=== PATIENT | female | born 1955 | race Caucasian/White ===

== ENCOUNTER 2016-11-27 14:54 | Emergency (ER) | payer MEDICAID, OTHER ==
[~2016-11-27] VITALS: Ht 165.1 cm; Wt 75.0 kg
[~2016-11-27 14:54] MED LIST: CYCL-259 PO; TRAM50TA2 PO
[2016-11-27 14:56] VITALS: BP 104/68
[2016-11-27] MEDS ORDERED: HYDROcodone/APAP 5/325 TABLET ONE (15:16)
[2016-11-27] MEDS ORDERED: HYDROcodone/APAP 5/325 TABLET PO ONE (15:30)
== END 2016-11-27 16:59 | disposition home or self-care (01) ==
LOC: ED 16:10
DX: S82.64XA Nondisplaced fracture of lateral malleolus of right fibula, initial encounter for closed fracture (principal); W01.0XXA Fall on same level from slipping, tripping and stumbling without subsequent striking against object, initial encounter; Y93.01 Activity, walking, marching and hiking; Y92.410 Unspecified street and highway as the place of occurrence of the external cause; Y99.8 Other external cause status
CPT/HCPCS: 29515